=== PATIENT | female | born 1990 | race Caucasian/White ===

== ENCOUNTER 2016-05-21 14:00 | Emergency (ER) | payer OTHER ==
[2016-05-21] MEDS ORDERED: PROMETHAZINE HCL 25 MG/ML AMPUL IM ONE (16:28)
[2016-05-21] MEDS ORDERED: KETOROLAC TROMETHAMINE 60 MG/2 ML VIAL IM ONE ×2 (16:28→16:44)
--- NOTE | 2016-05-21 16:41 | ERNOTE ---
[facility] Date of Service: 05/21/16 Presenting Symptoms: dental pain Time Seen by Provider: 05/21/16 16:18 Source: patient, RN notes reviewed Exam Limitations: no limitations - Immun/Allergies/Home Medications Immunizations: IMMUNIZATION HX Immunizations Up to Date Yes History of Influenza Vaccine Yes Hx Pneumococcal Vaccination Yes Allergies/Adverse Reactions: Allergies Allergy/AdvReac Type Severity Reaction Status Date / Time No Known Allergies Allergy Verified 05/21/16 15:55 Home Medications: HOME MEDICATIONS Levonorgestrel [Mirena] 1 each IY 05/18/13 [Last Taken Unknown] HYDROcodone/ACETAMINOPHEN [[place] 5-325] 1 - 2 tab PO Q6H PRN #12 tab 05/21/16 [ Last Taken Unknown] Ibuprofen [Motrin] 600 mg PO Q6H PRN #40 tab 05/21/16 [Last Taken Unknown] Penicillin V Potassium [Pen-Vee K] 500 mg PO Q8H #30 tab 05/21/16 [Last Taken Unknown] - History of Present Illness Narrative: 25 y/o female ambulatory to the ED for pain d/t a broken tooth. This happened last week and she has a dentist appointment in 2 days, but she report the pain has become unbearable. Severity: Present: severe ENT Location: Present: dental Prearrival Treatment: Present: over the counter meds Associated Symptoms - ENT: Reports: poor solid intake, tooth pain, headache. Denies: fever, poor fluid intake, facial pain/swelling, jaw swelling Prior Treament: Denies: recently seen, similar symptoms before Review of Systems - Review of Systems Constitutional: Absent: fever, chills EYE: Present: no symptoms reported ENT: Absent: nose congestion, sore throat Respiratory: Present: no symptoms reported Cardiology: Present: no symptoms reported Gastrointestinal/Abdominal: Absent: nausea, vomiting Genitourinary: Present: no symptoms reported Musculoskeletal: Absent: muscle stiffness, neck pain Skin: Absent: rash, lesions Neurological: Present: headache. Absent: dizziness/light-headedness Endocrine: Present: no symptoms reported Hematologic/Lymphatic: Present: no symptoms reported Psych: Present: no symptoms reported - Patient's Past Medical History Patient History - Medical: No pertinent hx Patient History - Cardiac/Respiratory: No pertinent hx Patient History - Cancer: No Hx of Cancer Patient History - Surgical Procedures: , T & A, Other Patient History - Other: None LMP (females 10-50): mirena - Social History Living Situations: home Abuse History: No History of abuse Psych History: Hx of Anxiety, Hx of Depression Does anyone smoke in the home?: Yes Smoking Status: Never smoker Alcohol Use: none Drug Use: none - Immunizations Immunizations Up to Date: Yes Hx Pneumococcal Vaccination: Yes History of Influenza Vaccine: Yes Physical Exam - Physical Exam General Appearance: Present: wd/wn, alert, mild distress, other - tearful Eye Exam: Normal inspection: bilateral Ears, Nose, Throat: Present: other - #19 fractured and tender to palpation, temporary filling in place, no gingival inflammation or facial swelling. Absent : abnormal TM (R), abnormal TM (L), nasal congestion Respiratory: Present: no respiratory distress, normal breath sounds, no accessory muscle use, lungs clear Cardiovascular/Chest: Present: regular rate, rhythm, no murmur Neurological Exam: Present: alert, oriented, normal mood/affect Skin Exam: Present: normal color, warm/dry ED Progress - Vital Signs Patient's Vital Signs:: I have reviewed the patient's vital signs. Vital Signs: Vital Signs 05/21/16 05/21/16 14:21 15:52 Temperature 36.7 C 36.7 C Pulse Rate 90 77 Respiratory 12 14 Rate Blood Pressure 131/69 135/70 O2 Sat by Pulse 99 98 Oximetry - Progress/Reassessment Chief Complaint: Dental Problem Progress:: Improved Departure Clinical Impression: Tooth fracture Qualifiers: Encounter type: initial encounter Fracture type: open Qualified Code(s): S02.5XXB - Fracture of tooth (traumatic), initial encounter for open fracture - Departure Disposition: Home Follow Up Needed Condition: Stable Instructions: Dental Caries Prescriptions: HYDROcodone/ACETAMINOPHEN [[place] 5-325] 1 - 2 tab PO Q6H PRN #12 tab PRN Reason: Pain Ibuprofen [Motrin] 600 mg PO Q6H PRN #40 tab PRN Reason: Pain Penicillin V Potassium [Pen-Vee K] 500 mg PO Q8H #30 tab
[2016-05-21] MEDS ORDERED: PROMETHAZINE HCL 25 MG/ML AMPUL ONE (16:44)
[2016-05-21 16:52] VITALS: BP 119/66
--- OUTSIDE RECORDS SUMMARY | 2016-05-21 16:52 | XMS REPORT | Continuity of Care Document ---
:1990 Author Organization [employer] [place] [address] Care Team Providers Name Role Phone Lorenzo Ac Primary Care Provider [phone] Source Comments This disclosure is being made pursuant to the [employer] program and maynot contain all information available regarding this patient.[employer] Active Allergies and Adverse Reactions Not on File Current Medications Be aware that medications may not be up to date as of this document. Alwaysverify current medications with the patient. Not on file Active Problems Not on file Social History Tobacco Use Types Packs/Day Years Used Date Never Assessed Plan of Care Health Maintenance Due Date Last Done Comments HPV Vaccine ([id number]) (1 of 3 - Female/Unknown 3 Dose 06/29/2003 Series) Chlamydia Screening 2008 Retired-Tetanus Vaccine Adult 06/29/2011 Pap Smear 2013 Retired-INFLUENZA VACCINE 10/17/2014 Results from Last 3 Months Not on file
== END 2016-05-21 16:53 | disposition home or self-care (01) ==
LOC: ER 14:00
DX: K08.89 Other specified disorders of teeth and supporting structures (principal); S02.5XXB Fracture of tooth (traumatic), initial encounter for open fracture